=== PATIENT | female | born 1950 | race Caucasian/White ===

== ENCOUNTER → 2017-12-12 10:04 | Outpatient (CLI) | payer MEDICARE, OTHER, SELFPAY ==
--- NOTE | 2017-12-12 10:21 | MM_ITS ---
MM Dig screening mamm BI w/CAD CAD Screening ORDERING PHYSICIAN : Hair Figueroa MD PATIENT AGE: 67 years GENDER: Female COMPARISON: Previous mammograms: November 2010. September 2009 INDICATION: Routine screening. No hormones. No new complaints. Noncontributory family history. Previous stereotactic biopsy left breast TECHNIQUE: Standard CC and MLO images were obtained. R2 CAD reviewed. FINDINGS: Low-density breast with generalized fatty replacement. No dominant mass nor suspicious calcification. No change since prior studies. Computer-assisted review highlights no areas of concern either. RIGHT BREAST:Stable mammogram with no areas of concern Minimal density lateral right breast unchanged LEFT BREAST:Stable mammogram with no areas of concern . Small metallic marker at the superior retroareolar region again noted from previous stereotactic biopsy. ... IMPRESSION: ...... Negative-. Stable bilateral mammogram Low-density breast with no new areas of concern Follow-up in one year recommended and should be encouraged BI-RADS Category: 1 Negative RECOMMENDED FOLLOW-UP: 1YR - 1 YEAR FOLLOW-UP (A letter has been sent to the patient regarding results of the study.)
--- NOTE | 2017-12-12 10:27 | XR_ITS ---
XR DEXA axial skeleton HISTORY: ITS.REASON: OSTEOPENIA ORDERING PHYSICIAN: Hair Figueroa MD PATIENT AGE: 67 years COMPARISON: None FINDINGS: The BMD measured at the forearm Radius 33% is 0.972 g/cm squared with a T score of 0.9 . This is considered normal according to the World Health Organization criteria. Fracture risk is low. Treatment is advised. Mean density of the hips as a T score of 1.1 which is also within normal limits. IMPRESSION: Normal bone density. Recommend follow-up exam November 2019
== END ==
PROVIDERS: Family Provider Family Medicine; PCP Family Medicine; Visit Provider Family Medicine
DX: Z12.31 Encounter for screening mammogram for malignant neoplasm of breast (principal); M85.89 Other specified disorders of bone density and structure, multiple sites
CPT/HCPCS: 77067; 77080

== ENCOUNTER → 2021-05-03 09:32 | Outpatient (CLI) | payer MEDICARE, OTHER, SELFPAY | LOC: RAD 15:30 → COVID.OUT 15:32 | PROVIDERS: PCP Family Medicine; Visit Provider Family Medicine | DX: Z20.822 Contact with and (suspected) exposure to COVID-19 (principal) ==

== ENCOUNTER → 2021-05-03 09:44 | Outpatient (CLI) | payer MEDICARE, OTHER, SELFPAY | PROVIDERS: PCP Family Medicine; Visit Provider Family Medicine | DX: Z20.822 Contact with and (suspected) exposure to COVID-19 (principal) | CPT/HCPCS: U0003 ==

== ENCOUNTER → 2021-05-04 15:46 | Outpatient (CLI) | payer MEDICARE, OTHER, SELFPAY ==
--- NOTE | 2021-05-04 15:49 | US_ITS ---
PROCEDURE: US THYROID CLINICAL INDICATION: ACQUIRED HYPOTHYDROIDISM COMPARISON: No exams were available for comparison FINDINGS: The right lobe is 4.1 x 1.8 x 1.8 cm. 6 mm hypoechoic nodule is present in the lower pole well-circumscribed wider than tall with no obvious calcifications. 4 mm hypoechoic nodule lower pole. The left lobe is 3.8 x 1.5 x 1.5 cm. Irregular cystic nodule is present in the upper pole at 8 mm. There are some peripheral calcifications. The isthmus is slightly thickened 5 mm. IMPRESSION: T rads level 3 nodules bilaterally less than 2.5 cm mildly suspicious. Recommend six-month follow-up Dictated by: Kareem Sandoval MD 05/04/2021 17:59 Kareem Sandoval MD in [place] 05/04/2021 17:59
== END ==
PROVIDERS: PCP Family Medicine; Visit Provider Family Medicine
DX: E03.9 Hypothyroidism, unspecified (principal)
CPT/HCPCS: 76536

== ENCOUNTER → 2021-07-13 12:49 | Outpatient (CLI) | payer MEDICARE, OTHER, SELFPAY | PROVIDERS: PCP Family Medicine; Visit Provider Nurse Practitioner | DX: Z20.822 Contact with and (suspected) exposure to COVID-19 (principal); U07.1 COVID-19 | CPT/HCPCS: C9803; U0003; U0005 ==

== ENCOUNTER → 2021-07-18 07:39 | Outpatient (CLI) | payer MEDICARE, OTHER, SELFPAY ==
[2021-07-18] VITALS (7 sets, daily range): BP systolic 125–140; BP diastolic 75–89; PULSE 50–71; RESP 18; TEMP 36.8; O2SAT 94–98
== END ==
PROVIDERS: PCP Family Medicine; Visit Provider Family Medicine
DX: U07.1 COVID-19 (principal); Z23 Encounter for immunization
CPT/HCPCS: 96365

== ENCOUNTER → 2021-11-02 12:01 | Outpatient (CLI) | payer MEDICARE, OTHER, SELFPAY | PROVIDERS: PCP Family Medicine; Visit Provider Family Medicine | DX: G47.9 Sleep disorder, unspecified (principal); G47.30 Sleep apnea, unspecified | CPT/HCPCS: G0399 ==

== ENCOUNTER → 2021-12-01 12:43 | Outpatient (CLI) | payer MEDICARE, OTHER, SELFPAY ==
[2021-12-01 14:54] LABS: Ferritin 96.5 ng/ml (11.1-264)
== END ==
PROVIDERS: Visit Provider Nurse Practitioner Family
DX: E83.10 Disorder of iron metabolism, unspecified (principal)
CPT/HCPCS: 36415; 82728

== ENCOUNTER → 2022-02-01 09:30 | Outpatient (CLI) | payer MEDICARE, OTHER, SELFPAY | PROVIDERS: Visit Provider Nurse Practitioner Family | DX: Z01.812 Encounter for preprocedural laboratory examination (principal); Z11.52 Encounter for screening for COVID-19 | CPT/HCPCS: C9803; U0003; U0005 ==

== ENCOUNTER → 2022-02-03 20:13 | Outpatient (CLI) | payer MEDICARE, OTHER, SELFPAY | PROVIDERS: PCP Family Medicine; Visit Provider Nurse Practitioner Family | DX: G47.33 Obstructive sleep apnea (adult) (pediatric) (principal); G47.36 Sleep related hypoventilation in conditions classified elsewhere; G47.10 Hypersomnia, unspecified; R06.83 Snoring | CPT/HCPCS: 95811 ==

== ENCOUNTER 2022-04-18 13:51 | Outpatient (RCR) | payer MEDICARE, OTHER, SELFPAY | END 2022-04-18 15:00 | disposition home or self-care (01) | LOC: PT 13:51 | PROVIDERS: PCP Psychiatry & Neurology Sleep Medicine | DX: M51.36 Other intervertebral disc degeneration, lumbar region (principal); G89.29 Other chronic pain; E66.01 Morbid (severe) obesity due to excess calories; Z68.43 Body mass index [BMI] 50.0-59.9, adult | CPT/HCPCS: 97542 ==

== ENCOUNTER → 2023-01-23 07:44 | Outpatient (CLI) | payer MEDICARE, OTHER, SELFPAY ==
--- NOTE | 2023-01-23 07:55 | XR_ITS ---
FINAL REPORT CLINICAL HISTORY: Postmenopausal FINDINGS: Using L1-4, the bone mineral density of the spine is 0.749 g/cm2, corresponding to T-score of 0.9. Using the left hip, the bone mineral density of the femoral neck is 1.065 g/cm2, corresponding to a T-score of 1.0. Using the right hip: The bone mineral density of the femoral neck is 1.015 g/cm2, corresponding to a T-score of 1.1. IMPRESSION: Normal bone mineral density of the lumbar spine and hips. NOTE: T-score: Standard deviation compared with peak bone mass of young adult mean. *Following the recommendations of the International Society of Bone densitometry, classification of hip BMD is based on the lower of two T-scores; total hip or femoral neck. Reviewed, Interpreted and Dictated by Chato Gunderson MD Transcribed by Ruby Cadena Authenticated and [facility]
--- NOTE | 2023-01-23 07:55 | MM_ITS ---
PROCEDURE INFORMATION: Exam: MG Bilateral Screening 3D Mammography Exam date and time: 01/23/2023 7:58 AM Age: 72 years old Clinical indication: Screening examination TECHNIQUE: Imaging protocol: Bilateral Screening tomosynthesis and 2D mammography including computer-aided detection (CAD) when performed. COMPARISON: 1. MG SCBI MM Dig screening mamm BI w/CAD 12/12/2017 10:29 AM 2. MG DMSB DIGITAL MAMM-SCREEN BILATERAL 11/26/2010 9:59 AM FINDINGS: MAMMOGRAPHY: Breast composition: The breasts are almost entirely fatty. Mass: None. Architectural distortion: None. Calcifications: No suspicious calcifications. Asymmetric density: None. Skin thickening: None. Axillary adenopathy: None. IMPRESSION: No mammographic evidence of malignancy. Annual screening is recommended unless otherwise clinically indicated. ASSESSMENT: BI-RADS Category 1: Negative
== END ==
PROVIDERS: PCP Family Medicine; Visit Provider Family Medicine
DX: Z12.31 Encounter for screening mammogram for malignant neoplasm of breast (principal); Z78.0 Asymptomatic menopausal state
CPT/HCPCS: 77063; 77067; 77080

== ENCOUNTER 2023-11-01 15:13 | Outpatient (CLI) | payer MEDICARE, OTHER, SELFPAY ==
--- NOTE | 2023-11-01 15:19 | XR_ITS ---
FINAL REPORT CLINICAL HISTORY: LOW BACK PAIN FINDINGS: 5 views of the lumbar spine were obtained. There is no evidence of fracture or dislocation. The vertebral alignment is normal. There are postoperative changes of fusion at L3-4. Moderate degenerative changes are seen with vacuum disc phenomenon at L4-5. There are presumed gallstones. No paraspinous soft tissue abnormalities identified. IMPRESSION: No acute bony abnormality. Reviewed, Interpreted and Dictated by Nam Morfin III, MD Transcribed by Juana Mendoza Authenticated and [facility]
== END 2023-11-01 23:59 ==
LOC: RAD 15:15
PROVIDERS: PCP Family Medicine; Visit Provider Family Medicine
DX: M54.41 Lumbago with sciatica, right side (principal)
CPT/HCPCS: 72110

== ENCOUNTER 2023-12-06 08:54 | Outpatient (POV) | payer MEDICARE, OTHER, SELFPAY ==
--- NOTE | 2023-12-06 09:32 | EXP.PAIN.OV ---
HPI Data of Consult Patient: new to practice Consult date: 12/06/23 Requesting Physician: Melissa Del Rosario APRN Primary Care Provider: Sandro Suresh MD Consult Narrative Reason for consult: Low back pain, bilateral hip pain History of present illness: Ms. Obrien is a 73 year old female who presents today as a new patient. 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 Today she rates her pain an 8 out of 10. Patient states the pain is all in her low back and some in her hips. Patient states this is been going on for years and progressively worsening. Patient does describe this as a sharp achy sensation that is worse with certain movements such as bending, or twisting or lifting. Patient states that she has tried taking Tylenol and ibuprofen along with heat and ice and topicals with minimal relief. She does state the pain interferes with her ability to perform activities of daily living such as cooking and cleaning. She states that she cannot seem to stand or walk for very long distances without having the pain started. Patient states in the past she has had injections years ago that gave temporary relief with some lasting 6 weeks. She states that this did not seem really beneficial to continue and over time she ended up having to have a lumbar fusion in 2009. Patient states that this did help some but then back around the time of COVSTANISLAV in 2019 she had gone back to [facility] who was recommending additional surgery to repair disc however this was put on hold with TERRE[facility]. Patient states that then there was just no follow-up and its progressively worsened. Patient does use a rolling walker and cane to help with ambulation. She is interested in any help we may be able to provide. She is prescribed tramadol 50 mg daily and diazepam 2 mg daily from her primary care provider. Her Bubba has been reviewed and is appropriate CC: Melissa Del Rosario APRN [facility] Disclaimer: The information contained in this section may have been updated after the patient was seen, as this information can be updated by other users. Surgical History History of bilateral knee replacement Previous back surgery Family History Other Cancer Coronary artery disease Heart attack Stroke Social History (Updated 12/06/23 @ 09:33 by Maris Veras RN) Smoking Status: Never smoker alcohol intake: never substance use type: denies use current occupational status: disabled Travel in the last 8 weeks: None household members: spouse housing: house marital status: Review of Systems Review of Systems Review of systems:: pertinent systems reviewed and negative unless documented below Review of systems (narrative): Review of Systems: General: No recent weight changes, no fever, no sleep disturbances Respiratory: No cough, no shortness of air, no recurring pulmonary infections Cardiovascular/peripheral vascular: No chest pain, no palpitations, no edema, no shortness of breath Gastrointestinal: No new onset incontinence, normal bowel movements reported Genitourinary: No new onset incontinence Musculoskeletal: Low back pain Psychiatric: [Normal mood/affect] Neurological: [Denies weakness in extremities], [denies balance issues] Meds Home Medications and Allergies Home Medications Medication Instructions Recorded Confirmed Type cholecalciferol (vitamin D3) 75 3,000 unit PO DAILY 06/11/19 12/06/23 History mcg (3,000 unit) tablet amlodipine 2.5 mg tablet 2.5 mg PO ONCE #30 tabs 12/01/21 12/06/23 History ascorbic acid (vitamin C) 500 mg 500 mg PO .COMPLEX 12/01/21 12/06/23 History capsule aspirin 81 mg tablet,delayed 81 mg PO DAILY 12/01/21 12/06/23 History release (Adult Low Dose Aspirin) biotin 10,000 mcg capsule See Rx Instructions PO .COMPLEX 12/01/21 12/06/23 History calcium carbonate 600 mg calcium 600 mg PO DAILY 12/01/21 12/06/23 History (1,500 mg) tablet diazepam 2 mg tablet 2 mg PO HS #30 tabs 12/01/21 12/06/23 History ferrous gluconate 324 mg (38 mg 324 mg PO DAILY 12/01/21 12/06/23 History iron) tablet furosemide 40 mg tablet 40 mg PO DAILY #30 tabs 12/01/21 12/06/23 History levocetirizine 5 mg tablet 10 mg PO DAILY #30 tabs 12/01/21 12/06/23 History lisinopril 40 mg tablet 20 mg PO DAILY #15 tabs 12/01/21 12/06/23 History potassium chloride 10 mEq 10 meq PO DAILY 12/01/21 12/06/23 History capsule,extended release pravastatin 40 mg tablet 40 mg PO HS #30 tabs 12/01/21 12/06/23 History spironolactone 25 mg tablet 25 mg PO DAILY #30 tabs 12/01/21 12/06/23 History tramadol 50 mg tablet 50 mg PO HS #30 tabs 12/01/21 12/06/23 History zinc sulfate 50 mg zinc (220 mg) 50 mg PO DAILY 12/01/21 12/06/23 History capsule melatonin 5 mg tablet 5 mg PO HS 02/09/22 12/06/23 History fluticasone propionate 50 1 spray intranasal DIRECTED PRN 05/25/22 12/06/23 History mcg/actuation nasal ALLERGIES #16 grams spray,suspension levothyroxine 88 mcg tablet 150 mcg PO DAILY #30 tabs 05/25/22 12/06/23 History allopurinol 100 mg tablet 100 mg PO .COMPLEX 10/03/22 12/06/23 History multivitamin 1 tab PO DAILY 10/03/22 12/06/23 History allopurinol 300 mg tablet 300 mg PO .COMPLEX 10/12/23 12/06/23 History New Prescriptions to Start Prescriptions: Allergies Allergy/AdvReac Type Severity Reaction Status Date / Time No Known Allergies Allergy Verified 10/12/23 08:16 Objective Narrative: Physical Exam: General: Alert and oriented x3, no acute distress, pleasant and cooperative Lungs: Respirations even and unlabored, symmetrical chest expansion Eyes: PERRL Musculoskeletal: Flexion and extension of lumbar [spine] somewhat guarded secondary to pain, [antalgic gait noted] positive Kemps test Neurological: Speech clear, no gross sensory deficit Additional findings Additional findings: FINDINGS: 5 views of the lumbar spine were obtained. There is no evidence of fracture or dislocation. The vertebral alignment is normal. There are postoperative changes of fusion at L3-4. Moderate degenerative changes are seen with vacuum disc phenomenon at L4-5. There are presumed gallstones. No paraspinous soft tissue abnormalities identified. IMPRESSION: No acute bony abnormality. Reviewed, Interpreted and Dictated by Nam Morfin III, MD Transcribed by Juana Mendoza Authenticated and [facility] Assessment and Plan *Assessment and plan (1) Degenerative disc disease, lumbar: Status: Acute Category: Medical Code(s): M51.36 - Other intervertebral disc degeneration, lumbar region (2) Status post lumbar spinal fusion: Status: Acute Category: Surgical Code(s): Z98.1 - Arthrodesis status (3) Chronic pain syndrome: Status: Acute Category: Medical Code(s): G89.4 - Chronic pain syndrome (4) Lumbar facet arthropathy: Status: Acute Category: Medical Code(s): M47.816 - Spondylosis without myelopathy or radiculopathy, lumbar region Plan Patient is experiencing significant pain in her low back with limited range of motion of her lumbar spine and a positive Kemps test during today's visit. I have discussed with patient that she may benefit from a lumbar medial branch block bilaterally. Risk and benefits were discussed with the patient and she would like to proceed forward with this plan of care. Patient is not currently on any blood thinners. Patient has tried and failed conservative therapy such as oral medication, heat and ice, topicals, at home stretching exercise for longer than 6 weeks. Patient states that she cannot tolerate prolonged activity or exercise due to the pain along with her weight. Patient states that she would like to lose weight to help with her pain however she cannot do this due to her current conditions. Patient will be scheduled for a lumbar medial branch block bilaterally L3-L4 and L4-L5 under fluoroscopy. Patient has been instructed to contact the clinic with any concerns before the next appointment. Dr. Jack has reviewed this note and agrees with this plan of care. This note was dictated using voice recognition software and make contain errors or omissions.
[2023-12-06 09:33] VITALS: BP 157/65; PULSE 76; RESP 20; O2SAT 95; BMI 58.2
== END 2023-12-06 23:59 ==
PROVIDERS: PCP Family Medicine; Visit Provider Nurse Practitioner Family
DX: M51.36 Other intervertebral disc degeneration, lumbar region (principal); Z98.1 Arthrodesis status; G89.4 Chronic pain syndrome; M47.816 Spondylosis without myelopathy or radiculopathy, lumbar region; M43.26 Fusion of spine, lumbar region
CPT/HCPCS: 99202; G0463

== ENCOUNTER 2023-12-29 09:53 | Day surgery (SDC) | payer MEDICARE, OTHER, SELFPAY ==
[2023-12-29 10:05] VITALS: BP 188/94; PULSE 73; RESP 18; TEMP 36.6; O2SAT 96; BMI 58.2
[2023-12-29] MEDS: methylPREDNISolone ACETATE 80MG/ML VIAL 80 MG (10:31)
[2023-12-29] MEDS: BUPIVACAINE 0.25% 10ML INJ 25 MG IJ (10:32)
[2023-12-29] MEDS: LIDOCAINE 1% 5ML PF VIAL 5 ML (10:32)
[2023-12-29 10:40] VITALS: BP 169/78; PULSE 66; RESP 18; O2SAT 98
--- NOTE | 2023-12-29 10:48 | P.PCN_ITS ---
Procedure Date: 12/29/23 Time: 10:30 Anesthesiologist:: Royer Velasquez CRNA Complications:: None Pre-procedure Diagnosis:: Degenerative disc lumbar spine multilevels. Lumbar radiculopathy. Lumbar postlaminectomy syndrome. Lumbar spondylosis. Multilevel lumbar facet arthropathy. Lumbar spinal stenosis. Post-procedure Diagnosis:: Same. Indications for Procedure:: Patient is a very pleasant 73-year-old female comes our clinic today for L3-4, L4-5 bilateral medial branch block/facet injection. Patient has a 10 to 15-year history of low lumbar issues. She is status post lumbar fusion. Status post lumbar discectomy/laminectomy. She describes low back pain as constant, dull, aching. She rates her pain 8/10. Patient reports having difficulty with flexion, extension, left and right rotation of the lumbar spine. Difficulty standing for any length of time due to lumbar back pain. Procedure Details:: Informed consent was obtained and the risk and benefits of the procedure was explained to the patient. Patient was taken to the procedure room where noninvasive monitors were placed, including noninvasive blood pressure cuff as well as pulse oximeter. The area over the lumbar spine was cleansed using chlorhexidine as a cleansing solution. I anesthetized the skin and subcutaneous tissues with 1% Lidocaine. I placed 22-gauge spinal needles into the facet joint/ medial branches of [L3-L4, L4-L5, bilaterally. Needle placement was confirmed with fluoroscopy. After confirmation of needle placement, each site was injected with 1 mL of 1% lidocaine and 0.25 % Marcaine and 10 mg of Depo- Medrol. A total of 80 mg of depo medrol was used for bilateral medial branch blocks of [L3-L4, L4-L5, bilaterally. Patient tolerated the procedure without difficulty. There were no complications. Plan and Disposition:: Patient was discharged without incident.
== END 2023-12-29 10:40 | disposition home or self-care (01) ==
PROVIDERS: PCP Family Medicine; Visit Provider Nurse Anesthetist, Certified Registered
DX: M47.896 Other spondylosis, lumbar region (principal); M51.16 Intervertebral disc disorders with radiculopathy, lumbar region; M96.1 Postlaminectomy syndrome, not elsewhere classified; M48.061 Spinal stenosis, lumbar region without neurogenic claudication
CPT/HCPCS: 64493; 64494; J1010

== ENCOUNTER 2024-01-10 13:00 | Outpatient (POV) | payer MEDICARE, OTHER, SELFPAY ==
[2024-01-10 13:07] VITALS: BP 138/88; PULSE 75; RESP 18; O2SAT 95; BMI 56.5
--- NOTE | 2024-01-10 17:16 | EXP.PAIN.SOA ---
[facility] Pain Management SOAP Note Subjective:: Patient is a pleasant 73-year-old female who presents today for follow-up from a lumbar medial branch block L3-L4 and L4-L5 on 12/29/2023. Today she rates her pain a 3 out of 10. Patient does state that she has had 100% resolution of her overall right hip pain following this injection. She does state however she has continued to have back pain. She states that she cannot stand for long periods of time due to this pain. She states that she does have to stop and take breaks and sit down. Patient has tried [id number] medications such as Tylenol and ibuprofen in the past. Patient does state that she has had altered kidney function in the past and is not sure what her current levels are. Patient does states she will use a TENS unit that does typically help for a day or 2. She is currently prescribed tramadol from an outside provider. Her Bubba has been reviewed and is appropriate. Review of Systems: General: No recent weight changes, no fever, no sleep disturbances Respiratory: No cough, no shortness of air, no recurring pulmonary infections Cardiovascular/peripheral vascular: No chest pain, no palpitations, no edema, no shortness of breath Gastrointestinal: No new onset incontinence, normal bowel movements reported Genitourinary: No new onset incontinence Musculoskeletal: Low back pain Psychiatric: [Normal mood/affect] Neurological: [Denies weakness in extremities], [denies balance issues] Objective:: Physical Exam: General: Alert and oriented x3, no acute distress, pleasant and cooperative Lungs: Respirations even and unlabored, symmetrical chest expansion Eyes: PERRL Musculoskeletal: Flexion and extension of lumbar [spine] somewhat guarded secondary to pain, [antalgic gait noted] Neurological: Speech clear, no gross sensory deficit Assessment:: Degenerative disc disease of lumbar spine with lumbar facet arthropathy, hip pain Plan:: I have discussed with the patient that I will send in a prescription of Salonpas patches along with methocarbamol 500 mg twice a day and provide a 2-week supply of this medication. Patient has been counseled to contact our office if this does help we can send in additional refills. Patient will return to clinic in 1 month for reevaluation of symptoms and plan of care. Patient has been instructed to contact the clinic with any concerns before the next appointment. Dr. Jack has reviewed this note and agrees with this plan of care. This note was dictated using voice recognition software and make contain errors or omissions. [facility] Disclaimer: The information contained in this section may have been updated after the patient was seen, as this information can be updated by other users. Surgical History History of bilateral knee replacement Previous back surgery Family History Other Cancer Coronary artery disease Heart attack Stroke Social History Smoking Status: Never smoker alcohol intake: never substance use type: denies use current occupational status: unemployed Travel in the last 8 weeks: None household members: spouse housing: house marital status:
== END 2024-01-10 23:59 | disposition home or self-care (01) ==
PROVIDERS: PCP Family Medicine; Visit Provider Nurse Practitioner Family
DX: M51.36 Other intervertebral disc degeneration, lumbar region (principal); M47.816 Spondylosis without myelopathy or radiculopathy, lumbar region; M25.559 Pain in unspecified hip
CPT/HCPCS: 99212; G0463

== ENCOUNTER 2024-02-08 09:30 | Outpatient (POV) | payer MEDICARE, OTHER, SELFPAY ==
--- NOTE | 2024-02-08 09:53 | EXP.PAIN.SOA ---
[facility] Pain Management SOAP Note Subjective:: Appropriate patient is a pleasant 73-year-old female who presents today for 1 month follow-up. Today she rates her pain a 1 out of 10 however states that this is just because she has not been up and moving. She states her pain will immediately jump to at least a 6 out of 10 with prolonged standing or walking. She denies any new trauma or injury. She does describe it still as a sharp achy sensation that runs across the entire low back. She states that certain movements such as bending, twisting or lifting or prolonged standing or walking increases this pain. She states the pain does interfere with her ability perform activities of daily living such as cooking and cleaning. Patient has tried [id number] Tylenol and ibuprofen along with heat and ice and topicals with minimal relief. She continues to use a TENS unit with only temporary relief. Patient is prescribed tramadol from an outside provider. Patient has had physical therapy in the past with minimal relief and she does try and do exercise and stretching at home between even these injections with no additional relief. She does rely on a rolling walker to help with ambulation. Patient did previously have her first lumbar medial branch block back at the beginning of December that did provide 100% relief along the right side. Patient states she is possibly interested in repeating this injection again as they are having a trip coming up in February that requires him to drive [address] Her Bubba has been reviewed and is appropriate. Review of Systems: General: No recent weight changes, no fever, no sleep disturbances Respiratory: No cough, no shortness of air, no recurring pulmonary infections Cardiovascular/peripheral vascular: No chest pain, no palpitations, no edema, no shortness of breath Gastrointestinal: No new onset incontinence, normal bowel movements reported Genitourinary: No new onset incontinence Musculoskeletal: Low back pain Psychiatric: [Normal mood/affect] Neurological: [Denies weakness in extremities], [denies balance issues] Objective:: Physical Exam: General: Alert and oriented x3, no acute distress, pleasant and cooperative Lungs: Respirations even and unlabored, symmetrical chest expansion Eyes: PERRL Musculoskeletal: Flexion and extension of lumbar [spine] somewhat guarded secondary to pain, [antalgic gait noted] positive Kemps test Neurological: Speech clear, no gross sensory deficit Assessment:: Degenerative disc disease of lumbar spine with lumbar facet arthropathy, hip pain Plan:: Patient is experiencing worsening pain throughout her low back and have limited range of motion of her lumbar spine and a positive Kemps test. I discussed with patient that she may benefit from repeat lumbar medial branch block bilaterally.. Risk and benefits were discussed with patient and she would like to proceed forward with this plan of care. Patient is not on any blood thinners. Patient has tried and failed conservative therapy. Patient did have 100% relief along the right side following her first lumbar medial branch block. We will schedule her for her second lumbar medial branch block bilaterally L3-L4 and L4-L5 under fluoroscopy. If she does get significant relief again we will proceed forward with a lumbar ablation at a later date. Patient has been instructed to contact the clinic with any concerns before the next appointment. Dr. Jack has reviewed this note and agrees with this plan of care. This note was dictated using voice recognition software and make contain errors or omissions. [facility] Disclaimer: The information contained in this section may have been updated after the patient was seen, as this information can be updated by other users. Surgical History History of bilateral knee replacement Previous back surgery Family History Other Cancer Coronary artery disease Heart attack Stroke Social History Smoking Status: Never smoker alcohol intake: never substance use type: denies use current occupational status: other Travel in the last 8 weeks: None household members: spouse housing: house marital status:
[2024-02-08 09:54] VITALS: BP 149/74; PULSE 68; RESP 18; O2SAT 97; BMI 56.5
== END 2024-02-08 23:59 | disposition home or self-care (01) ==
LOC: SC.PAIN 09:31
PROVIDERS: PCP Family Medicine; Visit Provider Nurse Practitioner Family
DX: M51.36 Other intervertebral disc degeneration, lumbar region (principal); M47.896 Other spondylosis, lumbar region; M25.559 Pain in unspecified hip
CPT/HCPCS: 99212; G0463

== ENCOUNTER 2024-03-12 08:28 | Day surgery (SDC) | payer MEDICARE, OTHER, SELFPAY ==
[2024-03-12 08:40] VITALS: BP 154/81; PULSE 72; RESP 18; TEMP 36.3; O2SAT 95; BMI 58.7
--- NOTE | 2024-03-12 09:06 | P.PCN_ITS ---
Procedure Date: 03/12/24 Time: 08:50 Anesthesiologist:: Royer Velasquez CRNA Complications:: None Pre-procedure Diagnosis:: Degenerative disc lumbar spine multilevels. Lumbar radiculopathy. Lumbar spondylosis. Multilevel lumbar facet arthropathy. Lumbar postlaminectomy syndrome. Post-procedure Diagnosis:: Same. Indications for Procedure:: Patient is a very pleasant 73-year-old female comes our clinic today for a second round of lumbar medial branch block bilaterally L3-4, L4-5. Patient reports 2 weeks of moderate relief in terms of her overall low back symptoms with round 1 of injections at the same level. Patient reports low lumbar back pain that is constant, dull, aching. Patient reports having difficulty with left and right rotation. Flexion and extension is difficult. She rates her pain today 5/10. Procedure Details:: Informed consent was obtained and the risk and benefits of the procedure was explained to the patient. Patient was taken to the procedure room where noninvasive monitors were placed, including noninvasive blood pressure cuff as well as pulse oximeter. The area over the lumbar spine was cleansed using chlorhexidine as a cleansing solution. I anesthetized the skin and subcutaneous tissues with 1% Lidocaine. I placed 22-gauge spinal needles into the facet joint/ medial branches of [L3-L4, L4-L5 bilaterally. Needle placement was confirmed with fluoroscopy. After confirmation of needle placement, each site was injected with 1 mL of 1% lidocaine and 0.25 % Marcaine and 10 mg of Depo- Medrol. A total of 80 mg of depo medrol was used for bilateral medial branch blocks of [L3-L4, L4-L5 bilaterally. Patient tolerated the procedure without difficulty. There were no complications. Plan and Disposition:: Patient was discharged without incident.
[2024-03-12] MEDS: BUPIVACAINE 0.25% 10ML INJ 25 MG IJ (09:08)
[2024-03-12] MEDS: LIDOCAINE 1% 5ML PF VIAL 5 ML (09:08)
[2024-03-12 09:11] VITALS: BP 150/72; PULSE 71; RESP 18; O2SAT 96
== END 2024-03-12 09:12 | disposition home or self-care (01) ==
PROVIDERS: PCP Family Medicine; Visit Provider Nurse Anesthetist, Certified Registered
DX: M47.896 Other spondylosis, lumbar region (principal); M51.16 Intervertebral disc disorders with radiculopathy, lumbar region; M96.1 Postlaminectomy syndrome, not elsewhere classified
CPT/HCPCS: 64493; 64494; J1010

== ENCOUNTER 2024-03-13 10:46 | Outpatient (CLI) | payer MEDICARE, OTHER, SELFPAY ==
--- NOTE | 2024-03-13 10:56 | US_ITS ---
FINAL REPORT CLINICAL HISTORY: THYROID NODULE COMPARISON: None FINDINGS: THYROID ULTRASOUND: The right lobe of the thyroid measures 4.3 cm in sagittal length, and the left lobe of the thyroid gland measures 3.6 cm in sagittal length. The overall size of the thyroid gland is normal. There are multiple hypoechoic thyroid nodules present predominantly in the right lobe of the thyroid, that have an appearance most consistent with benign cysts. There is an ovoid hyperechoic 9 x 9 x 6 mm focus in the left thyroid, that may represent adjacent tissue, however if this is a true nodule it is likely benign, a TI-RADS category 3 nodule. IMPRESSION: Multiple hypoechoic foci predominantly in the right lobe of the thyroid likely benign cysts. There is a hyperechoic focus in the left lobe of the thyroid as described above, that may represent adjacent tissue, although if it does represent a true nodule it is likely benign. No follow-up is necessary at this time according to TI-RADS criteria. Reviewed, Interpreted and Dictated by Sandro Jerome MD Transcribed by Felicia Broussard Authenticated and [facility]
== END 2024-03-13 23:59 | disposition home or self-care (01) ==
LOC: RAD 10:47
PROVIDERS: PCP Family Medicine; Visit Provider Family Medicine
DX: E04.1 Nontoxic single thyroid nodule (principal)
CPT/HCPCS: 76536

== ENCOUNTER 2024-04-08 09:26 | Outpatient (POV) | payer MEDICARE, OTHER, SELFPAY ==
[2024-04-08 09:39] VITALS: BP 149/56; PULSE 77; RESP 16; O2SAT 96; BMI 56.5
--- NOTE | 2024-04-08 09:45 | EXP.PAIN.SOA ---
[facility] Disclaimer: The information contained in this section may have been updated after the patient was seen, as this information can be updated by other users. Surgical History History of bilateral knee replacement Previous back surgery Family History Other Cancer Coronary artery disease Heart attack Stroke Social History Smoking Status: Never smoker alcohol intake: never substance use type: denies use current occupational status: other Travel in the last 8 weeks: None household members: spouse housing: house marital status: PM Subjective & Objective Subjective Subjective:: Patient is a pleasant 73-year-old female who presents [facility] for follow-up her second lumbar medial branch block bilaterally L3-L4 and L4-L5 on 03/13/2024. Patient rates her pain today a 3 out of 10. She denies any new trauma or injury. She does state that she had at least 50% improvement following this injection however she feels like she is going back towards her baseline. Patient does state that they were able to go on their trip to [place] and that her pain was much better during that time. Patient states however now she is back to having more pain when she gets up and stands for any longer than 5 minutes. She states the pain will go to a 7 or 8 out of 10. Patient denies any radiating symptoms into her legs. She states the pain is all across her low back. Patient has tried and failed conservative therapies such as oral medication, heat and ice, topicals, at home stretching exercise for longer than 6 weeks. Patient has had her first diagnostic medial branch block in December that provided 100% relief along the right side and had 50% with this lumbar medial branch block. Patient does state that she does feel more functional with this therapies. She is interested in proceeding forward with the ablation. Patient does state that the chronic pain throughout her low back does interfere with her ability perform activities of daily living such as cooking and cleaning. She states she can even do the dishes or cook without having to stop and take breaks or lean due to the worsening pain. Patient is prescribed tramadol from her PCP. Her Bubba has been reviewed and is appropriate. Review of Systems: General: No recent weight changes, no fever, no sleep disturbances Respiratory: No cough, no shortness of air, no recurring pulmonary infections Cardiovascular/peripheral vascular: No chest pain, no palpitations, no edema, no shortness of breath Gastrointestinal: No new onset incontinence, normal bowel movements reported Genitourinary: No new onset incontinence Musculoskeletal: Low back pain Psychiatric: [Normal mood/affect] Neurological: [Denies weakness in extremities], [denies balance issues] Pain at rest (0-10 scale): 3 Objective Objective:: Physical Exam: General: Alert and oriented x3, no acute distress, pleasant and cooperative Lungs: Respirations even and unlabored, symmetrical chest expansion Eyes: PERRL Musculoskeletal: Flexion and extension of lumbar [spine] somewhat guarded secondary to pain, [antalgic gait noted] positive Kemps test Neurological: Speech clear, no gross sensory deficit Has patient had previous pain injection?: Yes Percent improvement in pain since last injection: 50% Conservative treatment options previously tried: Home exercise plan Length of treatment: Longer than 6 weeks Meds Home Medications and Allergies Home Medications Medication Instructions Recorded Confirmed Type cholecalciferol (vitamin D3) 75 3,000 unit PO DAILY 06/11/19 04/08/24 History mcg (3,000 unit) tablet amlodipine 2.5 mg tablet 2.5 mg PO ONCE #30 tabs 12/01/21 04/08/24 History ascorbic acid (vitamin C) 500 mg 500 mg PO .COMPLEX 12/01/21 04/08/24 History capsule aspirin 81 mg tablet,delayed 81 mg PO DAILY 12/01/21 04/08/24 History release (Adult Low Dose Aspirin) biotin 10,000 mcg capsule See Rx Instructions PO .COMPLEX 12/01/21 04/08/24 History calcium carbonate 600 mg PO DAILY 12/01/21 04/08/24 History diazepam 2 mg tablet 2 mg PO HS #30 tabs 12/01/21 04/08/24 History ferrous gluconate 324 mg (38 mg 324 mg PO DAILY 12/01/21 04/08/24 History iron) tablet furosemide 40 mg tablet 40 mg PO DAILY #30 tabs 12/01/21 04/08/24 History levocetirizine 5 mg tablet 10 mg PO DAILY #30 tabs 12/01/21 04/08/24 History lisinopril 40 mg tablet 20 mg PO DAILY #15 tabs 12/01/21 04/08/24 History potassium chloride 10 mEq 10 meq PO DAILY 12/01/21 04/08/24 History capsule,extended release pravastatin 40 mg tablet 40 mg PO HS #30 tabs 12/01/21 04/08/24 History spironolactone 25 mg tablet 25 mg PO DAILY #30 tabs 12/01/21 04/08/24 History tramadol 50 mg tablet 50 mg PO HS #30 tabs 12/01/21 04/08/24 History zinc sulfate 50 mg zinc (220 mg) 50 mg PO DAILY 12/01/21 04/08/24 History capsule melatonin 5 mg tablet 5 mg PO HS 02/09/22 04/08/24 History fluticasone propionate 50 1 spray intranasal DIRECTED PRN 05/25/22 04/08/24 History mcg/actuation nasal ALLERGIES #16 grams spray,suspension levothyroxine 88 mcg tablet 150 mcg PO DAILY #30 tabs 05/25/22 04/08/24 History allopurinol 100 mg tablet 100 mg PO .COMPLEX 10/03/22 04/08/24 History multivitamin 1 tab PO DAILY 10/03/22 04/08/24 History allopurinol 300 mg tablet 300 mg PO .COMPLEX 10/12/23 04/08/24 History lidocaine 4 % topical patch 1 patch topical BID PRN pain #30 ea 01/10/24 04/08/24 Rx (Lidocaine Pain Relief) methocarbamol 500 mg tablet 500 mg PO BID #28 tabs 01/10/24 04/08/24 Rx New Prescriptions to Start Prescriptions: Allergies Allergy/AdvReac Type Severity Reaction Status Date / Time No Known Allergies Allergy Verified 12/29/23 10:17 Assessment and Plan *Assessment and plan (1) Lumbar facet arthropathy: Status: Acute Category: Medical Code(s): M47.816 - Spondylosis without myelopathy or radiculopathy, lumbar region (2) Chronic pain syndrome: Status: Acute Category: Medical Code(s): G89.4 - Chronic pain syndrome (3) Status post lumbar spinal fusion: Status: Acute Category: Surgical Code(s): Z98.1 - Arthrodesis status (4) Degenerative disc disease, lumbar: Status: Acute Category: Medical Code(s): M51.36 - Other intervertebral disc degeneration, lumbar region Plan Patient has had significant improvement following her second lumbar medial branch block however she is experiencing worsening pain again throughout her low back. Patient did have limited range of motion positive Kemps test during today's exam. I did discuss with patient that she may benefit from lumbar radiofrequency ablation. Risk and benefits were discussed with the patient and she would like to proceed forward with this plan of care. Patient has tried and failed conservative therapy. Patient did have 100% relief on the right side with her first diagnostic lumbar medial branch block and 50% with her second. We will submit to insurance for the lumbar RFA bilaterally L3-L4 and L4-L5 under fluoroscopy. Patient has been instructed to contact the clinic with any concerns before the next appointment. Dr. Jack has reviewed this note and agrees with this plan of care. This note was dictated using voice recognition software and make contain errors or omissions.
== END 2024-04-08 23:59 | disposition home or self-care (01) ==
LOC: SC.PAIN 09:27
PROVIDERS: PCP Family Medicine; Visit Provider Nurse Practitioner Family
DX: M47.816 Spondylosis without myelopathy or radiculopathy, lumbar region (principal); G89.4 Chronic pain syndrome; Z98.1 Arthrodesis status; M51.36 Other intervertebral disc degeneration, lumbar region
CPT/HCPCS: 99212; G0463

== ENCOUNTER 2024-05-22 09:31 | Outpatient (POV) | payer MEDICARE, OTHER, SELFPAY ==
[2024-05-22 09:49] VITALS: BP 177/94; PULSE 84; RESP 16; O2SAT 96; BMI 57.4
--- NOTE | 2024-05-22 11:48 | EXP.PAIN.SOA ---
[facility] Disclaimer: The information contained in this section may have been updated after the patient was seen, as this information can be updated by other users. Surgical History History of bilateral knee replacement Previous back surgery Family History Other Cancer Coronary artery disease Heart attack Stroke Social History Smoking Status: Never smoker alcohol intake: never substance use type: denies use current occupational status: unemployed Travel in the last 8 weeks: None household members: spouse housing: house marital status: PM Subjective & Objective Subjective Subjective:: Patient is a pleasant 73-year-old female who presents today for insurance denial. Today she rates her pain an 8 out of 10. She denies any new trauma or injury. She does state that she still has the chronic low back pain that does interfere with her ability to perform activities of daily living such as cooking and cleaning. Patient has had lumbar medial branch blocks in the past that did provide upwards of 80 to 100% improvement. Patient however felt like these were very temporary and would frequently drop to about 50% by the 2-week rita. Patient is currently managed with tramadol 50 mg at night. She denies any side effects from this medication. Her Bubba has been reviewed and is appropriate. Review of Systems: General: No recent weight changes, no fever, no sleep disturbances Respiratory: No cough, no shortness of air, no recurring pulmonary infections Cardiovascular/peripheral vascular: No chest pain, no palpitations, no edema, no shortness of breath Gastrointestinal: No new onset incontinence, normal bowel movements reported Genitourinary: No new onset incontinence Musculoskeletal: Low back pain Psychiatric: [Normal mood/affect] Neurological: [Denies weakness in extremities], [denies balance issues] Pain at rest (0-10 scale): 8 Objective Objective:: Physical Exam: General: Alert and oriented x3, no acute distress, pleasant and cooperative Lungs: Respirations even and unlabored, symmetrical chest expansion Eyes: PERRL Musculoskeletal: Flexion and extension of lumbar [spine] somewhat guarded secondary to pain, [antalgic gait noted] Neurological: Speech clear, no gross sensory deficit Has patient had previous pain injection?: No Conservative treatment options previously tried: Home exercise plan Length of treatment: 6 weeks or more Meds Home Medications and Allergies Home Medications ?Medication ?Instructions ?Recorded ?Confirmed ?Type cholecalciferol (vitamin D3) 75 3,000 unit PO DAILY 06/11/19 05/22/24 History mcg (3,000 unit) tablet amlodipine 2.5 mg tablet 2.5 mg PO ONCE #30 tabs 12/01/21 05/22/24 History ascorbic acid (vitamin C) 500 mg 500 mg PO .COMPLEX 12/01/21 05/22/24 History capsule aspirin 81 mg tablet,delayed 81 mg PO DAILY 12/01/21 05/22/24 History release (Adult Low Dose Aspirin) biotin 10,000 mcg capsule See Rx Instructions PO .COMPLEX 12/01/21 05/22/24 History calcium carbonate 600 mg PO DAILY 12/01/21 05/22/24 History diazepam 2 mg tablet 2 mg PO HS #30 tabs 12/01/21 05/22/24 History ferrous gluconate 324 mg (38 mg 324 mg PO DAILY 12/01/21 05/22/24 History iron) tablet furosemide 40 mg tablet 40 mg PO DAILY #30 tabs 12/01/21 05/22/24 History levocetirizine 5 mg tablet 10 mg PO DAILY #30 tabs 12/01/21 05/22/24 History lisinopril 40 mg tablet 20 mg PO DAILY #15 tabs 12/01/21 05/22/24 History potassium chloride 10 mEq 10 meq PO DAILY 12/01/21 05/22/24 History capsule,extended release pravastatin 40 mg tablet 40 mg PO HS #30 tabs 12/01/21 05/22/24 History spironolactone 25 mg tablet 25 mg PO DAILY #30 tabs 12/01/21 05/22/24 History tramadol 50 mg tablet 50 mg PO HS #30 tabs 12/01/21 05/22/24 History zinc sulfate 50 mg zinc (220 mg) 50 mg PO DAILY 12/01/21 05/22/24 History capsule melatonin 5 mg tablet 5 mg PO HS 02/09/22 05/22/24 History fluticasone propionate 50 1 spray intranasal DIRECTED PRN 05/25/22 05/22/24 History mcg/actuation nasal ALLERGIES #16 grams spray,suspension levothyroxine 88 mcg tablet 150 mcg PO DAILY #30 tabs 05/25/22 05/22/24 History allopurinol 100 mg tablet 100 mg PO .COMPLEX 10/03/22 05/22/24 History multivitamin 1 tab PO DAILY 10/03/22 05/22/24 History allopurinol 300 mg tablet 300 mg PO .COMPLEX 10/12/23 05/22/24 History lidocaine 4 % topical patch 1 patch topical BID PRN pain #30 ea 01/10/24 05/22/24 Rx (Lidocaine Pain Relief) methocarbamol 500 mg tablet 500 mg PO BID #28 tabs 01/10/24 05/22/24 Rx New Prescriptions to Start Prescriptions: Allergies Allergy/AdvReac Type Severity Reaction Status Date / Time No Known Allergies Allergy Verified 12/29/23 10:17 Assessment and Plan *Assessment and plan (1) Lumbar facet arthropathy: Status: Acute Category: Medical Code(s): M47.816 - Spondylosis without myelopathy or radiculopathy, lumbar region Plan I will send in a prescription of tramadol 50 mg twice daily and provide a 1 month supply of this medication. Patient will return to clinic in 1 month for reevaluation of symptoms and plan of care. Risks and benefits of the medication have been explained in detail to the patient. The patient does understand the risk of dependence on the medication when given over a prolonged period. Patient has been advised of risks of oversedation with the prescribed medication. Narcan has been offered to the paitent in the event of oversedation. Patient has been advised that a family member should also be educated regarding administration of Narcan. The patient has been advised to consult with his/her primary care provider and pharmacist regarding drug-drug interaction of medications currently prescribed. Patient has been prescribed a controlled substance after being counseled on the medication, medication safety, and possible side effects. Opioid contract was reviewed and signed by the patient, and that they have agreed to all of the terms set forth by our compliance program. Patient has been instructed to contact the clinic with any concerns before the next appointment. Dr. Jack has reviewed this note and agrees with this plan of care. This note was dictated using voice recognition software and make contain errors or omissions.
== END 2024-05-22 23:59 | disposition home or self-care (01) ==
PROVIDERS: PCP Family Medicine; Visit Provider Nurse Practitioner Family
DX: M47.816 Spondylosis without myelopathy or radiculopathy, lumbar region (principal); Z96.653 Presence of artificial knee joint, bilateral; Z73.89 Other problems related to life management difficulty; Z79.899 Other long term (current) drug therapy
CPT/HCPCS: 99212; G0463

== ENCOUNTER 2024-06-20 10:01 | Outpatient (POV) | payer MEDICARE, OTHER, SELFPAY ==
[2024-06-20 10:22] VITALS: BP 145/100; PULSE 88; RESP 16; O2SAT 95; BMI 58.1
--- NOTE | 2024-06-20 10:37 | A.OFFVIS_ITS ---
[facility] Disclaimer: The information contained in this section may have been updated after the patient was seen, as this information can be updated by other users. Surgical History History of bilateral knee replacement Previous back surgery Family History Other Cancer Coronary artery disease Heart attack Stroke Social History Smoking Status: Never smoker alcohol intake: never substance use type: denies use current occupational status: other Travel in the last 8 weeks: None household members: spouse housing: house marital status: PM Subjective & Objective Subjective Subjective:: Patient is a pleasant 73-year-old female who presents today for 1 month follow- up. Today she rates her pain a 8 out of 10. Patient denies any new trauma or injury. Patient states overall she is still doing well and maintaining. Neetu espinoza at her last visit was prescribed tramadol 50 mg twice a day however she states when she ended up going to the pharmacy that Dr. Suresh did already have his prescription therefore tramadol once a day. Patient does state that that medication does help and feels like it eases off some of the pain. Patient does state today that it would be nice to have a second tablet on occasion for when the pain is worse. Her Bubba has been reviewed and is appropriate. Review of Systems: General: No recent weight changes, no fever, no sleep disturbances Respiratory: No cough, no shortness of air, no recurring pulmonary infections Cardiovascular/peripheral vascular: No chest pain, no palpitations, no edema, no shortness of breath Gastrointestinal: No new onset incontinence, normal bowel movements reported Genitourinary: No new onset incontinence Musculoskeletal: Low back pain Psychiatric: [Normal mood/affect] Neurological: [Denies weakness in extremities], [denies balance issues] Pain at rest (0-10 scale): 8 Objective Objective:: Physical Exam: General: Alert and oriented x3, no acute distress, pleasant and cooperative Lungs: Respirations even and unlabored, symmetrical chest expansion Eyes: PERRL Musculoskeletal: Flexion and extension of lumbar [spine] somewhat guarded secondary to pain, [antalgic gait noted] Neurological: Speech clear, no gross sensory deficit Has patient had previous pain injection?: No Conservative treatment options previously tried: Home exercise plan Length of treatment: Longer than 12 weeks Meds Home Medications and Allergies Home Medications ?Medication ?Instructions ?Recorded ?Confirmed ?Type cholecalciferol (vitamin D3) 75 3,000 unit PO DAILY 06/11/19 06/20/24 History mcg (3,000 unit) tablet amlodipine 2.5 mg tablet 2.5 mg PO ONCE #30 tabs 12/01/21 06/20/24 History ascorbic acid (vitamin C) 500 mg 500 mg PO .COMPLEX 12/01/21 06/20/24 History capsule aspirin 81 mg tablet,delayed 81 mg PO DAILY 12/01/21 06/20/24 History release (Adult Low Dose Aspirin) biotin 10,000 mcg capsule See Rx Instructions PO .COMPLEX 12/01/21 06/20/24 History calcium carbonate 600 mg PO DAILY 12/01/21 06/20/24 History diazepam 2 mg tablet 2 mg PO HS #30 tabs 12/01/21 06/20/24 History ferrous gluconate 324 mg (38 mg 324 mg PO DAILY 12/01/21 06/20/24 History iron) tablet furosemide 40 mg tablet 40 mg PO DAILY #30 tabs 12/01/21 06/20/24 History levocetirizine 5 mg tablet 10 mg PO DAILY #30 tabs 12/01/21 06/20/24 History lisinopril 40 mg tablet 20 mg PO DAILY #15 tabs 12/01/21 06/20/24 History potassium chloride 10 mEq 10 meq PO DAILY 12/01/21 06/20/24 History capsule,extended release pravastatin 40 mg tablet 40 mg PO HS #30 tabs 12/01/21 06/20/24 History spironolactone 25 mg tablet 25 mg PO DAILY #30 tabs 12/01/21 06/20/24 History zinc sulfate 50 mg zinc (220 mg) 50 mg PO DAILY 12/01/21 06/20/24 History capsule melatonin 5 mg tablet 5 mg PO HS 02/09/22 06/20/24 History fluticasone propionate 50 1 spray intranasal DIRECTED PRN 05/25/22 06/20/24 History mcg/actuation nasal ALLERGIES #16 grams spray,suspension levothyroxine 88 mcg tablet 150 mcg PO DAILY #30 tabs 05/25/22 06/20/24 History allopurinol 100 mg tablet 100 mg PO .COMPLEX 10/03/22 06/20/24 History multivitamin 1 tab PO DAILY 10/03/22 06/20/24 History allopurinol 300 mg tablet 300 mg PO .COMPLEX 10/12/23 06/20/24 History lidocaine 4 % topical patch 1 patch topical BID PRN pain #30 ea 01/10/24 06/20/24 Rx (Lidocaine Pain Relief) methocarbamol 500 mg tablet 500 mg PO BID #28 tabs 01/10/24 06/20/24 Rx tramadol 50 mg tablet 50 mg PO BID #60 tabs 05/22/24 06/20/24 Rx New Prescriptions to Start Prescriptions: Allergies Allergy/AdvReac Type Severity Reaction Status Date / Time No Known Allergies Allergy Verified 12/29/23 10:17 Assessment and Plan *Assessment and plan (1) Lumbar facet arthropathy: Status: Acute Category: Medical Code(s): M47.816 - Spondylosis without myelopathy or radiculopathy, lumbar region (2) Chronic pain syndrome: Status: Acute Category: Medical Code(s): G89.4 - Chronic pain syndrome Plan Patient continues to have chronic low back pain. I did discuss with the patient that I do not have a problem doing the tramadol twice a day and providing a 3- month supply of this medication however it would be something that she would either continue the prescription with our office or Dr. Suresh would take over and that we would not be having to prescribe worse on this medication. Patient does state that she is not scheduled for her next follow-up with Dr. Suresh until August. We will send in a 90-day supply of the tramadol in the meantime to get her to that appointment and then we will wait to hear from her regarding is continuing this prescription or his office. Patient agrees with this plan of care. Patient will return to clinic in 3 months for reevaluation of symptoms and plan of care. Risks and benefits of the medication have been explained in detail to the patient. The patient does understand the risk of dependence on the medication when given over a prolonged period. Patient has been advised of risks of oversedation with the prescribed medication. Narcan has been offered to the paitent in the event of oversedation. Patient has been advised that a family member should also be educated regarding administration of Narcan. The patient has been advised to consult with his/her primary care provider and pharmacist regarding drug-drug interaction of medications currently prescribed. Patient has been prescribed a controlled substance after being counseled on the medication, medication safety, and possible side effects. Opioid contract was reviewed and signed by the patient, and that they have agreed to all of the terms set forth by our compliance program. Patient has been instructed to contact the clinic with any concerns before the next appointment. Dr. Jcak has reviewed this note and agrees with this plan of care. This note was dictated using voice recognition software and make contain errors or omissions.
== END 2024-06-20 23:59 | disposition home or self-care (01) ==
PROVIDERS: PCP Family Medicine; Visit Provider Nurse Practitioner Family
DX: M47.816 Spondylosis without myelopathy or radiculopathy, lumbar region (principal); G89.4 Chronic pain syndrome; Z96.653 Presence of artificial knee joint, bilateral; Z79.899 Other long term (current) drug therapy
CPT/HCPCS: 99212; G0463

== ENCOUNTER 2024-09-26 09:22 | Outpatient (POV) | payer MEDICARE, OTHER, SELFPAY ==
[2024-09-26 09:54] VITALS: BP 155/54; PULSE 84; RESP 18; O2SAT 97; BMI 54.9
--- NOTE | 2024-09-26 10:05 | A.OFFVIS_ITS ---
[facility] [place] Disclaimer: The information contained in this section may have been updated after the patient was seen, as this information can be updated by other users. Surgical History History of bilateral knee replacement Previous back surgery Family History Other Cancer Coronary artery disease Heart attack Stroke Social History Smoking Status: Never smoker alcohol intake: never substance use type: denies use current occupational status: other Travel in the last 8 weeks: None household members: spouse housing: house marital status: Have you lived/traveled outside [place] in past 30 days?: No Contact w/someone who lives/traveled outside [place] past 30 days?: No Exposure to someone with infectious disease in past 14 days?: No Do you have a fever (greater than 100.4 F or 38 C)?: No Have you tested positive for COVID-19: No Exposed to someone with COVID-19 in past 14 days?: No Do you have a sore throat?: No Do you have a cough?: No Do you have any weakness?: No Do you have any diarrhea?: No Are you experiencing any unusual bleeding?: No Do you have any muscle aches/pain?: No Do you have any abdominal pain?: No Are you experiencing loss of taste or smell?: No PM Subjective & Objective Subjective Subjective:: Patient is a pleasant 74-year-old female who presents today for follow-up. Today she rates her pain a 6 out of 10. Patient did have a fall back last month and had some soreness with bruising but denies any significant injury or fractures. She does state that she still has her chronic back pain. Patient is prescribed tramadol [address] Suresh's office at her last visit we did discuss about our office taking over the tramadol and changing it to twice a day or having a discussion with Dr. Suresh about possibly making it twice a day. She states that she has not followed up and had any conversation with Dr. Suresh. She states that generally she takes her tramadol along with diazepam and 2 Tylenol and it does help her overall back pain. Patient states she would not be able to even sleep without the pain medication. Her Bubba has been reviewed and is appropriate. Review of Systems: General: No recent weight changes, no fever, no sleep disturbances Respiratory: No cough, no shortness of air, no recurring pulmonary infections Cardiovascular/peripheral vascular: No chest pain, no palpitations, no edema, no shortness of breath Gastrointestinal: No new onset incontinence, normal bowel movements reported Genitourinary: No new onset incontinence Musculoskeletal: Low back pain Psychiatric: [Normal mood/affect] Neurological: [Denies weakness in extremities], [denies balance issues] Pain at rest (0-10 scale): 6 Objective Objective:: Physical Exam: General: Alert and oriented x3, no acute distress, pleasant and cooperative Lungs: Respirations even and unlabored, symmetrical chest expansion Eyes: PERRL Musculoskeletal: Flexion and extension of lumbar [spine] somewhat guarded secondary to pain, [antalgic gait noted] Neurological: Speech clear, no gross sensory deficit Has patient had previous pain injection?: No Conservative treatment options previously tried: Home exercise plan Length of treatment: Longer than 12 weeks Meds Home Medications and Allergies Home Medications ?Medication ?Instructions ?Recorded ?Confirmed ?Type cholecalciferol (vitamin D3) 75 3,000 unit PO DAILY 06/11/19 09/26/24 History mcg (3,000 unit) tablet amlodipine 2.5 mg tablet 2.5 mg PO ONCE #30 tabs 12/01/21 09/26/24 History ascorbic acid (vitamin C) 500 mg 500 mg PO .COMPLEX 12/01/21 09/26/24 History capsule aspirin 81 mg tablet,delayed 81 mg PO DAILY 12/01/21 09/26/24 History release (Adult Low Dose Aspirin) biotin 10,000 mcg capsule See Rx Instructions PO .COMPLEX 12/01/21 09/26/24 History calcium carbonate 600 mg PO DAILY 12/01/21 09/26/24 History diazepam 2 mg tablet 2 mg PO HS #30 tabs 12/01/21 09/26/24 History ferrous gluconate 324 mg (38 mg 324 mg PO DAILY 12/01/21 09/26/24 History iron) tablet furosemide 40 mg tablet 40 mg PO DAILY #30 tabs 12/01/21 09/26/24 History levocetirizine 5 mg tablet 10 mg PO DAILY #30 tabs 12/01/21 09/26/24 History lisinopril 40 mg tablet 20 mg PO DAILY #15 tabs 12/01/21 09/26/24 History potassium chloride 10 mEq 10 meq PO DAILY 12/01/21 09/26/24 History capsule,extended release pravastatin 40 mg tablet 40 mg PO HS #30 tabs 12/01/21 09/26/24 History spironolactone 25 mg tablet 25 mg PO DAILY #30 tabs 12/01/21 09/26/24 History zinc sulfate 50 mg zinc (220 mg) 50 mg PO DAILY 12/01/21 09/26/24 History capsule melatonin 5 mg tablet 5 mg PO HS 02/09/22 09/26/24 History fluticasone propionate 50 1 spray intranasal DIRECTED PRN 05/25/22 09/26/24 History mcg/actuation nasal ALLERGIES #16 grams spray,suspension levothyroxine 88 mcg tablet 150 mcg PO DAILY #30 tabs 05/25/22 09/26/24 History allopurinol 100 mg tablet 100 mg PO .COMPLEX 10/03/22 09/26/24 History multivitamin 1 tab PO DAILY 10/03/22 09/26/24 History allopurinol 300 mg tablet 300 mg PO .COMPLEX 10/12/23 09/26/24 History lidocaine 4 % topical patch 1 patch topical BID PRN pain #30 ea 01/10/24 09/26/24 Rx (Lidocaine Pain Relief) methocarbamol 500 mg tablet 500 mg PO BID #28 tabs 01/10/24 09/26/24 Rx tramadol 50 mg tablet 50 mg PO BID #180 tabs 06/20/24 09/26/24 Rx New Prescriptions to Start Prescriptions: Allergies Allergy/AdvReac Type Severity Reaction Status Date / Time No Known Allergies Allergy Verified 12/29/23 10:17 Assessment and Plan *Assessment and plan (1) Lumbar facet arthropathy: Status: Acute Category: Medical Code(s): M47.816 - Spondylosis without myelopathy or radiculopathy, lumbar region (2) Chronic pain syndrome: Status: Acute Category: Medical Code(s): G89.4 - Chronic pain syndrome (3) Status post lumbar spinal fusion: Status: Acute Category: Surgical Code(s): Z98.1 - Arthrodesis status (4) Degenerative disc disease, lumbar: Status: Acute Category: Medical Code(s): M51.369 - Other intervertebral disc degeneration, lumbar region without mention of lumbar back pain or lower extremity pain Plan I did discuss with the patient that we are still more than willing to do the tramadol twice a day or even discuss with Dr. Suresh's office about this. Patient did try injections and did get some improvement however they were still very temporary. I have counseled the patient just to let us know and that I will give her a follow-up appointment today and that she can just call for her next appointment. Patient agrees with this plan of care. Patient has been instructed to contact the clinic with any concerns before the next appointment. Dr. Jack has reviewed this note and agrees with this plan of care. This note was dictated using voice recognition software and make contain errors or omissions. All injections are used with Lidocaine, Bupivacaine and Depo Medrol. Occasionally urine drug screen is needed to verify patient's compliance with our office pain contract. This is ordered based off specific treatments related to chronic pain with the potential to abuse certain medications.
== END 2024-09-26 23:59 | disposition home or self-care (01) ==
LOC: SC.PAIN 09:24
PROVIDERS: PCP Family Medicine; Visit Provider Nurse Practitioner Family
DX: M47.816 Spondylosis without myelopathy or radiculopathy, lumbar region (principal); G89.4 Chronic pain syndrome; Z98.1 Arthrodesis status; M51.369 Other intervertebral disc degeneration, lumbar region without mention of lumbar back pain or lower extremity pain; Z79.899 Other long term (current) drug therapy
CPT/HCPCS: 99212; G0463

== ENCOUNTER 2025-02-28 09:36 | Outpatient (RCR) | payer MEDICARE, OTHER, SELFPAY ==
--- NOTE | 2025-02-28 11:50 | HMH.PTOPWND ---
Rehab Outpt Wound Evaluation Rehab OP Wound Evaluation Start: 02/28/25 11:40 Freq: Status: Active Protocol: Document 02/28/25 11:41 VENTURA (Rec: 02/28/25 11:50 PHORMIGDALIA [id number]) E-signed By Marcial Lira, PT Subjective/History History History This is the initial PT wound care eval for Yenni Obrien, 74 yowf who presents with c/o L lower leg wound x ~ 2- 3 wks with insidious onset of symptoms. She reports she had a previous wound in the same area ~ 6 mos ago which healed, but she has now suffered a new wound in the same area. She states, I couldn't take my fluid pills because my had an appointment at the [facility] and that caused my leg to swell and then this place opened up and started weeping. She reports PMH of HTN, B TKA, lumbar spine surgery, hypothyroidism, anxiety. Subjective Subjective Pt reports no c/o pain at this time, 0/10, but she does have increased TTP in the area of her L lower leg wound, 2/4. She presents with 2+ pitting edema throughout B lower legs. She reports she does wear compression stockings but didn't put them on today, because they are too hard to get on and off for this. New diagnosis of No cancer in past 12 months? Wound Eval Wound Left Medial [place] Wound Type Stasis Ulcer Is This a Chronic No Wound Wound Length (cm) 1.0 Wound Width (cm) 1.0 Wound Depth (cm) 0.1 Wound Bed Appearance [place] Percentage 100 Granulated (%) Wound Margins Well Defined Description Edema Type Pitting Edema Degree 2+ Query Text:1+ Trace, Barely Detectable, Rebound 15-30 seconds 2+ Moderate, Slight Indentation, Rebound 10-20 seconds 3+ Deep, Deeper Indentation, Rebound > 30 seconds 4+ Very Deep, Rebound > 60 seconds Edema Appearance Puffy Drainage Description Serous Drainage Amount Small Primary Dressing Composite Comment optifoam gentle border Wound Debridement Forceps,Gauze,Mechanical Method Wound Debridement Minimal Amount of Tissue Removed Dressing Change Tolerated Well Patient Tolerance Golden-Jeronimo Wound Assessment Tool Assessment Wound size 1=Length x Width <4 sq cm Wound depth 2=Partial thickness skin loss involving epidermis &/or dermis Wound edges 1=Indistinct, diffuse, none clearly visible Wound undermining 1=None present Necrotic tissue type 1=Non visible Necrotic tissue 1=None visible amount Exudate type 4=Serous: thin, watery, clear Exudate amount 3=Small Skin color 1=[place] or normal for ethnic group surrounding wound Peripheral tissue 5=Crepitus and/or pitting edema extends > or = 4 cm edema around wound Peripheral tissue 1=None present induration Granulation tissue 1=Skin intact or partial thickness wound Epithelialization 2=75% to < 100% wound covered &/or epithelial tissue extends > 0.5cm Wound assessment 24 total score Wound Problems/Impairments Impairments Problems/ Palpation Tenderness,Impaired Walking,Impaired Standing Impairmments ,Impaired Household Care,Increased Edema,Lymphedema Present,Wound Care Needs,Subjective C/O Pain,Impaired Self Care/Self Management Prognosis Rehab Potential Good Comment Skilled therapy is indicated to aid reduction of total wound surface area in order to return pt to PLOF with all ADLs. Clinical Impression Consistent with Yes Diagnosis Short Term Goals Number of Weeks 2 Decreased Palpation Yes: 1/4 L lower leg Tenderness Decrease Wound Area Yes: by 25% Production Control Analyst Goals Number of Weeks 4 Decreased Palpation Yes: 0/4 L lower leg Tenderness Decrease Wound Area Yes: by 75% Outpatient Therapy Plan of Care Treatment Plan May Include Wound Care Yes Eval/Re-Eval Yes Frequency Times per week 1 Duration Number of Weeks 4 Addendums This patient is a No candidate for social or vocational rehab ? Patient/Guardian Yes verbally acknowledges understanding of treatment program and consents to further treatment? Patient/Guardian Yes verbally acknowledges understanding of diagnosis, prognosis and goals for treatment? Eval Complexity PT Charges 31633 - Moderate Complexity PHYSICIAN CERTIFICATION: I certify the specified therapy services for Yenni Obrien are required, authorized, and reviewed every 30 days.
== END 2025-02-28 23:59 | disposition home or self-care (01) ==
LOC: PT 09:36
PROVIDERS: Visit Provider Family Medicine
DX: S81.802D Unspecified open wound, left lower leg, subsequent encounter (principal)
CPT/HCPCS: 97162